=== PATIENT | female | born 1940 | race Caucasian/White ===

== ENCOUNTER 2019-06-04 06:16 | Inpatient (IN) | payer OTHER ==
[2019-06-04 07:08] VITALS: BMI 27.3
--- NOTE | 2019-06-04 07:22 | PDOC ---
History of Present Illness - General Chief Complaint: Pain Stated Complaint: ABD PAIN Time Seen by Provider: 06/04/19 07:22 History Source: Patient Exam Limitations: No Limitations - History of Present Illness Initial Comments: 06/04/19 07:40 CHIEF COMPLAINT: Abdominal pain HISTORY OF PRESENT ILLNESS: This is a 78-year-old female with a history of hypercholesterolemia, uterine carcinoma S/P hysterectomy (no adjuvant therapy), and cholecystectomy who presents with her for evaluation of abdominal pain. The patient reports that she has had loss of appetite, intermittent achy abdominal pain, and constipation for the last 3 weeks. She has been very little and her last bowel movement was more than a week ago. She notes that her abdomen is distended. She has some nausea. She denies fevers/chills, night sweats, weight loss, rectal bleeding, or any other symptoms. The patient was evaluated by her PCP for abdominal pain and prescribed antacids , which she took for 1 week. She states that this helped initially, but pain has been persistent. Vital signs on arrival are notable for pulse of 107. Smoking: Quit 15 years ago Alcohol: Occasional PCP: Dr. Bustamante Surgical history: Hysterectomy in 1998, cholecystectomy 2004 Colonoscopy only once in 1998, which was normal per her report REVIEW OF SYSTEMS: GENERAL/CONSTITUTIONAL: No fever or chills. Generalized weakness. No weight change. HEAD, EYES, EARS, NOSE AND THROAT: No change in vision. No ear pain or discharge. No sore throat. CARDIOVASCULAR: No chest pain or palpitations. RESPIRATORY: No cough, wheezing, or shortness of breath. GASTROINTESTINAL: See HPI. GENITOURINARY: No dysuria, frequency, or change in urination. MUSCULOSKELETAL: No joint or muscle swelling or pain. No neck or back pain. SKIN: No rash or easy bruising. NEUROLOGIC: No headache, vertigo, loss of consciousness, or loss of sensation. PSYCHIATRIC: No depression or anxiety. ENDOCRINE: No increased thirst. No abnormal weight change. HEMATOLOGIC/LYMPHATIC: No anemia, easy bleeding, or history of blood clots. ALLERGIC/IMMUNOLOGIC: No hives or skin allergy. No latex allergy. PHYSICAL EXAM: GENERAL: The patient is awake, alert, and fully oriented, in some distress secondary to pain. HEAD: Normal with no signs of trauma. ENT: Pupils equal, round and reactive to light, extraocular movements intact, sclera anicteric, conjunctiva clear. Neck supple. LUNGS: Clear to auscultation bilaterally. Normal excursion. No respiratory distress or use of accessory muscles. CV: RRR, S1/S2, no MRG. Cap refill < 2 sec. ABDOMEN: Firm, distended, dull to percussion. Bowel sounds present but hypoactive. No focal tenderness.. EXTREMITIES: Normal range of motion, no edema. NEUROLOGICAL: Normal speech, normal gait. CN II-XII grossly intact. PSYCH: Normal mood, normal affect. SKIN: Warm, dry, normal turgor, no rashes or lesions noted. 06/04/19 07:57 Past History - Past Medical History Allergies/Adverse Reactions: Allergies Allergy/AdvReac Type Severity Reaction Status Date / Time No Known Allergies Allergy Verified 06/04/19 07:13 Home Medications: Ambulatory Orders Aspirin [Adult Aspirin Regimen] 81 mg PO DAILY 06/04/19 Pantoprazole Sodium 40 mg PO DAILY 06/04/19 Simvastatin 20 mg PO DAILY 06/04/19 - Suicide/Smoking/Psychosocial Hx Smoking History: Unknown if ever smoked *Physical Exam - Vital Signs Last Vital Signs Temp Pulse Resp BP Pulse Ox 97.5 F L 107 H 18 136/80 100 06/04/19 07:02 06/04/19 07:02 06/04/19 07:02 06/04/19 07:02 06/04/19 07:02 ED Treatment Course - LABORATORY CBC & Chemistry Diagram: 06/04/19 08:14 06/04/19 08:14 Medical Decision Making - Medical Decision Making 06/04/19 07:45 A/P: 78-year-old female with 3 weeks of abdominal pain, distention, loss of appetite, and constipation. 1. EKG 2. Labs including CBC, CMP, lipase, lactic acid, UA/culture 3. CTAP with PO/IV contrast to evaluate for SBO, malignant process, other intra- abdominal pathology 4. Zofran 4mg IVP for pain 5. IV hydration 6. Patient declines analgesia at this time 06/04/19 13:00 Labs notable for hyponatremia-127, elevated alkaline phosphatase, elevated lactic acid (3.0). CT reviewed with radiologist: There is a right pleural effusion. There are multiple splenic lesions. There is a large volume of ascites. There are bone lesion suspicious for metastases. This likely represents a metastatic malignant process, with unknown primary at this time. Discussed with Dr. Bustamante, will admit to hospitalist for further evaluation and treatment including paracentesis. Discussed with IR - will perform paracentesis including cytology today. 06/04/19 14:05 *DC/Admit/Observation/Transfer Diagnosis at time of Disposition: Ascites, Abdominal pain, Constipation - Discharge Dispostion Condition at time of disposition: Guarded Decision to Admit order: Yes - Referrals Referrals: Dougie Bustamante MD [Primary Care Provider] - - Patient Instructions - Post Discharge Activity
[2019-06-04] MEDS ORDERED: ONDANSETRON 4 MG/2 ML VIAL ONE (07:49)
[2019-06-04] MEDS ORDERED: SODIUM CHLORIDE 1,000 ML IV SCH (08:00)
[2019-06-04] MEDS: ONDANSETRON 4 MG/2 ML VIAL IVPUSH PRN (08:15)
[2019-06-04 08:30] LABS: BASO % 0.7 % (0-2.0); EOS % 0.4 % (0-4.5); HEMATOCRIT 39.1 % (32.4-45.2); HEMOGLOBIN 13.5 GM/dL (10.7-15.3); LYMPH % 5.7 % (8-40); MCH 31.1 pg (25.7-33.7); MCHC 34.5 g/dl (32.0-36.0); MEAN CELL VOLUME 90.3 fl (80-96); MEAN PLT VOLUME 9.1 fl (7.5-11.1); MONO % 11.1 % (3.8-10.2); NEUT % 82.1 % (42.8-82.8); PLATELET COUNT 545 K/MM3 (134-434); RBC 4.34 M/mm3 (3.60-5.2); RDW 15.3 % (11.6-15.6); WHITE BLOOD COUNT 7.3 K/mm3 (4.0-10.0)
[2019-06-04 08:49] LABS: ALBUMIN 3.6 g/dl (3.4-5.0); BLOOD UREA NITROGEN 33.1 mg/dL (7-18); CALCIUM 8.5 mg/dL (8.5-10.1); CREATININE 1.1 mg/dL (0.55-1.3); POTASSIUM 4.9 mmol/L (3.5-5.1); TOT PROT 7.5 g/dl (6.4-8.2)
[2019-06-04 08:58] LABS: HYALINE CASTS 28 /lpf (0-8); URINE APPEARANCE CLOUDY; URINE BACTERIA 56.7 /hpf (NEGATIVE); URINE BILIRUBIN 2+ (NEGATIVE); URINE COLOR DK YELLOW; URINE GLUCOSE (UA) NEGATIVE (NEGATIVE); URINE KETONE TRACE (NEGATIVE); URINE LEUK ESTERASE 2+ (NEGATIVE); URINE NITRITE POSITIVE (NEGATIVE); URINE PROTEIN TRACE (NEGATIVE); URINE WBC 8 /hpf (0-5)
[2019-06-04 09:28] LABS: INR 1.05 (0.83-1.09); PROTHROMBIN TIME (PATIENT) 12.4 SEC (9.7-13.0)
[2019-06-04 12:34] LABS: URINE RBC 0-3 /hpf (0-4)
--- NOTE | 2019-06-04 15:59 | HP ---
CHIEF COMPLAINT: Abdominal pain PCP: Dr. Bustamante HISTORY OF PRESENT ILLNESS: 78 y/o F w PMHx of HLD, Uterine Ca s/p hysterectomy (No chemoradiation) presents with abdominal pain, Loss of appetite. Patient says she began to feel GERD sx's approx. 3 weeks ago. After about 1 week of persistent sx's, she spoke with Dr. Bustamante who rx'ed Pantoprazole. Around this time, she additionally began to feel 8/10 cramping dull diffuse abdominal pain, worse over the left side without radiation, that waxes and wanes. The PPI use improved her GERD sx's however her abdominal pain persisted. This was accompanied by Decreased PO Intake, weakness, lightheadedness for which she again discussed the case with her PCP yesterday who recommend outpatient Labs and CT A/P with PO and IV Contrast. Overnight, her pain persisted but her weakness worsened prompting her to visit [facility] [place]. Additionally complains of chills, constipation. Denies any associated fevers, chest pain, SOB, nausea, vomiting, diarrhea, dysuria, hematuria. 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 Ambulation: Cane Residence: Home with Allergies No Known Allergies Allergy (Verified 06/04/19 07:13) HOME MEDICATIONS: Home Medications Medication Instructions Recorded Aspirin [Adult Aspirin Regimen] 81 mg PO DAILY 06/04/19 Pantoprazole Sodium 40 mg PO DAILY 06/04/19 Simvastatin 20 mg PO DAILY 06/04/19 REVIEW OF SYSTEMS As per HPI PHYSICAL EXAMINATION Vital Signs - 24 hr 06/04/19 06/04/19 07:02 11:07 Temperature 97.5 F L 97.1 F L Pulse Rate 107 H Pulse Rate [ 86 Right] Respiratory 18 Rate Blood Pressure 136/80 Blood Pressure 127/98 [Left] O2 Sat by Pulse 100 96 Oximetry (%) GENERAL: A&Ox3, NAD HEAD: NCAT EYES: PERRL, EOMI EARS, NOSE, THROAT: Moist mucous membranes. NECK: No JVD LUNGS: CTAB, No wheezes, no crackles HEART: Regular rate and rhythm, normal S1 and S2 without murmur ABDOMEN: Soft, tender to palpation over the LUQ and LLQ, Mildly distended, Hypooactive bowel sounds, no guarding, no rebound EXTREMITIES: 2+ pulses, No peripheral edema. NEUROLOGICAL: Cranial nerves II-XII intact. Normal speech. Gross sensation intact throughout. 5/5 muscle strength throughout SKIN: Warm, dry Laboratory Last Values WBC 7.3 K/mm3 (4.0-10.0) 06/04/19 08:14 RBC 4.34 M/mm3 (3.60-5.2) 06/04/19 08:14 Hgb 13.5 GM/dL (10.7-15.3) 06/04/19 08:14 Hct 39.1 % (32.4-45.2) 06/04/19 08:14 MCV 90.3 fl (80-96) 06/04/19 08:14 MCH 31.1 pg (25.7-33.7) 06/04/19 08:14 MCHC 34.5 g/dl (32.0-36.0) 06/04/19 08:14 RDW 15.3 % (11.6-15.6) 06/04/19 08:14 Plt Count 545 K/MM3 (134-434) H 06/04/19 08:14 MPV 9.1 fl (7.5-11.1) 06/04/19 08:14 Absolute Neuts (auto) 6.0 K/mm3 (1.5-8.0) 06/04/19 08:14 Neutrophils % 82.1 % (42.8-82.8) 06/04/19 08:14 Lymphocytes % 5.7 % (8-40) L 06/04/19 08:14 Monocytes % 11.1 % (3.8-10.2) H 06/04/19 08:14 Eosinophils % 0.4 % (0-4.5) 06/04/19 08:14 Basophils % 0.7 % (0-2.0) 06/04/19 08:14 Nucleated RBC % 0 % (0-0) 06/04/19 08:14 PT with INR 12.40 SEC (9.7-13.0) 06/04/19 08:14 INR 1.05 (0.83-1.09) 06/04/19 08:14 Sodium 127 mmol/L (136-145) L 06/04/19 08:14 Potassium 4.9 mmol/L (3.5-5.1) 06/04/19 08:14 Chloride 91 mmol/L (98-107) L 06/04/19 08:14 Carbon Dioxide 23 mmol/L (21-32) 06/04/19 08:14 Anion Gap 13 MMOL/L (8-16) 06/04/19 08:14 BUN 33.1 mg/dL (7-18) H 06/04/19 08:14 Creatinine 1.1 mg/dL (0.55-1.3) 06/04/19 08:14 Est GFR (CKD-EPI)AfAm 55.69 06/04/19 08:14 Est GFR (CKD-EPI)NonAf 48.05 06/04/19 08:14 Random Glucose 117 mg/dL (74-106) H 06/04/19 08:14 Lactic Acid 1.4 mmol/L (0.4-2.0) 06/04/19 10:34 Calcium 8.5 mg/dL (8.5-10.1) 06/04/19 08:14 Total Bilirubin 2.0 mg/dL (0.2-1) H 06/04/19 08:14 AST 32 U/L (15-37) 06/04/19 08:14 ALT 18 U/L (13-61) 06/04/19 08:14 Alkaline Phosphatase 250 U/L (45-117) H 06/04/19 08:14 Total Protein 7.5 g/dl (6.4-8.2) 06/04/19 08:14 Albumin 3.6 g/dl (3.4-5.0) 06/04/19 08:14 Lipase 202 U/L (73-393) 06/04/19 07:35 Urine Color Dk yellow 06/04/19 08:14 Urine Appearance Cloudy 06/04/19 08:14 Urine pH 5.0 (5.0-8.0) 06/04/19 08:14 Ur Specific Andreas 1.025 (1.010-1.035) 06/04/19 08:14 Urine Protein Trace (NEGATIVE) 06/04/19 08:14 Urine Glucose (UA) Negative (NEGATIVE) 06/04/19 08:14 Urine Ketones Trace (NEGATIVE) H 06/04/19 08:14 Urine Blood Negative (NEGATIVE) 06/04/19 08:14 Urine Nitrite Positive (NEGATIVE) H 06/04/19 08:14 Urine Bilirubin 2+ (NEGATIVE) H 06/04/19 08:14 Urine Urobilinogen 2.0 mg/dL (0.2-1.0) H 06/04/19 08:14 Ur Leukocyte Esterase 2+ (NEGATIVE) H 06/04/19 08:14 Urine WBC (Auto) 8 /hpf (0-5) 06/04/19 08:14 Urine RBC (Auto) 0-3 /hpf (0-4) 06/04/19 08:14 Urine Casts (Auto) 28 /lpf (0-8) 06/04/19 08:14 U Pathogenic Cast Auto None seen /lpf (NEGATIVE) 06/04/19 08:14 U Epithel Cells (Auto) 10.0 /HPF (0-5/HPF) 06/04/19 08:14 Urine Bacteria (Auto) 56.7 /hpf (NEGATIVE) 06/04/19 08:14 Blood Type A NEGATIVE 06/04/19 08:14 Antibody Screen Negative 06/04/19 08:14 Active Medications Docusate Sodium (Colace -) 100 mg PO TID [facility] Enoxaparin Sodium (Lovenox -) 40 mg SQ DAILY [facility] Sodium Chloride (Normal Saline -) 1,000 mls @ 100 mls/hr IV ASDIR LUISA Last Admin: 06/04/19 08:15 Dose: 100 mls/hr Sodium Chloride (Normal Saline -) 1,000 mls @ 83 mls/hr IV ASDIR [facility] Ondansetron HCl (Zofran Injection) 4 mg IVPUSH Q4H PRN PRN Reason: NAUSEA AND/OR VOMITING Last Admin: 06/04/19 08:15 Dose: 4 mg Oxycodone HCl (Roxicodone -) 5 mg PO Q4H PRN PRN Reason: PAIN LEVEL 6-10 Senna (Senna -) 2 tab PO HS [facility] IMAGING: -CXR: Bibasilar pulmonary and pleural changes right greater than left. Residual contrast in bowel. Correlation recommended. Follow-up suggested. -CT A/P with contrast: [id number] right pleural effusion with compressive atelectasis of the right lower lobe, posteriorly. Mild atelectatic changes with a pleural-based nodule in the included left lower lobe measuring 1.2cm that demonstrates a spiculated margin suspicious for malignancy, primary versus secondary. Multiple low-attenuation foci in the spleen suspicious for metastasis. Large amount of ascites in the abdomen and pelvis. Mild dilatation of the small bowel loops with wall thickening that may be due to the presence of significant surrounding ascites. There is also significant mesenteric stranding in the left upper abdomen adjacent to the splenic flexure, of uncertain etiology. There is no gross thickening of the splenic flexure wall. Diverticulosis coli mainly in the sigmoid colon without evidence of acute diverticulitis. Diffuse bone metastasis, as described above. ASSESSMENT/PLAN: 78 y/o F w PMHx of HLD, Uterine Ca s/p hysterectomy (No chemoradiation) presents with abdominal pain, Loss of appetite. #Ascities -Likely due to metastatic disease with unknown primary lesion -Oncology (Dr. Johansen) consulted by ED -Paracentesis done, 3860mL Removed, follow Cytology, Gram stain, cx, cell count , albumin -Analgesia via Oxycodone 5mg -Chest CT to further evaluate LLL pleural-based nodule suspicious for malignancy #Hyponatremia -Likely due to Poor PO Intake, Still consider SIADH -Continue IV Hydration -Repeat BMP @ 1800 -Check Urine and Serum Osm, Urine Na, Urine Cr #Lactic Acidosis, Resolved -In the setting of Tumor vs Dehydration #RLL Compressive atelectasis -Without cough or fever -Incentive spirometry #Weakness + Decreased PO Intake -In the setting of the above malignancy -Dietary consulted -Ensure Nutritional supplementation #Constipation -Bowel Regimen #FEN -IV NS @ 100 -Replete Lytes PRN -Soft diet #PPx -DVT: Enoxaparin Dispo: Admit to Med-Surg Family Medical History Family Hx Cancer: Mother (Breast Ca, ?Colon Ca) Visit type - Emergency Visit Emergency Visit: Yes ED Registration Date: 06/04/19 Care time: The patient presented to the Emergency Department on the above date and was hospitalized for further evaluation of their emergent condition. - New Patient This patient is new to me today: Yes Date on this admission: 06/05/19 - Critical Care Critical Care patient: No ATTENDING PHYSICIAN STATEMENT I saw and evaluated the patient. I reviewed the resident's note and discussed the case with the resident. I agree with the resident's findings and plan as documented. SUBJECTIVE: OBJECTIVE: ASSESSMENT AND PLAN:
[2019-06-04] MEDS ORDERED: DOCUSATE SODIUM 100 MG CAPSULE (FP) PO ONE (16:20)
[2019-06-04] MEDS: SODIUM CHLORIDE 1,000 ML IV SCH (16:35)
[2019-06-04] MEDS: DOCUSATE SODIUM 100 MG CAPSULE (FP) PO SCH ×2 (16:35→22:25)
--- NOTE | 2019-06-04 18:14 | PN ---
Teaching Attending Note Name of Resident: Mary Koch ATTENDING PHYSICIAN STATEMENT I saw and evaluated the patient. I reviewed the resident's note and discussed the case with the resident. I agree with the resident's findings and plan as documented. SUBJECTIVE: CC: abd pain. HPI : Pleasant unfortunate 78 y/o lady with h/o HTN and depression, and uterine cancer s/p hysterectomy who presented with abd pain x 3 weeks. pain started in epigastric area,lasted a week then continued even after her PCp gave her PPIx 1 week. she reports abd size is getting bigger slowly, has poor po intake. last colo and EGD in 1997, ( reportedly nl). quit smoking 15 years ago, but previously smoked heavily. had serial PETS and CTS after her Hysterectomy for years, then stopped. OBJECTIVE: NAD , pale, thin. HEENT: No LAP in neck. has no facial droop. dry MM. tongue at midline. CV: RRR, no MRG Lungs: CATB Ext : no demea or erythema. Abd: soft, NT, distended, + shifting dullness, no hepatomegaly or splenomegaly detected Neuro: No facial droop, EOMi, round equal pupils, reactive to light , strength 5 /5 in upper and lower extremities proximally and distally. sensation to light touch nl. ASSESSMENT AND PLAN: Pleasant unfortunate 78 y/o lady with h/o HTN and depression, and uterine cancer s/p hysterectomy who presented with abd pain x 3 weeks,. She was found to have ascitis and splen, and bone lesions 1- Possible metastatic cancer: possible primary could be lung, colon, or other... - obtain chest CT - follow cytology from Ascitis fluid - Onc consulted 2- Ascitis: likely malignant . - s/p IR drainage of 3860 cc - follow cytology, cell count, cx , albumin 3- hyponatremia: likely hypovolemic hypotonic hyponatremia ( clinical volume depletion, poor pointake, elevated BUN/Cr) can't r/o SIADH due to cancer - check Serum and urine osm - Urine cr, NA, and Osm - cont IVF with NS and repeat Na . 4- Fatigue, due to volume depletion, and cancer - dietitian consult - ensure 5- Constipation : start a bowel regimen dispo: HLOC d/w patient and her daughter at bedside
--- NOTE | 2019-06-04 20:28 | CONSULT ---
Consult - text type - Consultation Consultation Note: This is a 78-year-old female with a history of hypercholesterolemia, uterine carcinoma S/P hysterectomy (no adjuvant therapy), and cholecystectomy who presents with abdominal pain/disctention of several weeks duration. The patient reports that she has had loss of appetite, intermittent abdominal pain, and constipation for the last 3 weeks. She had intermittent vomiting. She denies fevers/chills, night sweats, weight loss, rectal bleeding, or any other symptoms. Smoking: Quit 15 years ago Alcohol: Occasional PCP: Dr. Bustamante Surgical history: Hysterectomy in 1998, cholecystectomy 2004 Colonoscopy only once in 1998, which was normal per her report AFVSS Cor: RSR, No murmurs, No gallops Lungs: Clear to P&A Abd: Soft, Normal bowel sounds, No organomegaly Ext:No significant edema labs/meds reviewed Allergies/Adverse Reactions: Allergies Allergy/AdvReac Type Severity Reaction Status Date / Time No Known Allergies Allergy Verified 06/04/19 07:13 Home Medications: Ambulatory Orders Aspirin [Adult Aspirin Regimen] 81 mg PO DAILY 06/04/19 Pantoprazole Sodium 40 mg PO DAILY 06/04/19 Simvastatin 20 mg PO DAILY 06/04/19 A/P 78 y/o patient presenting with h/o hysterectomy, comes in with abdominal distention CT scan revealed -- a right pleural effusion. There are multiple splenic lesions. There is a large volume of ascites. There are bone lesions suspicious for metastases s/p paracentesis -- await cytology check tumor markers -- CA 125/ CEA check bone scan colonoscopy several yrs. ago> 10yrs. mammogram-- benign, U/S --hypoechoic masses, stable 11/03 will follow
[2019-06-04] MEDS ORDERED: SENNOSIDES 8.6MG TABLET (FP) PO SCH (22:00)
[2019-06-04 23:18] LABS: BLOOD UREA NITROGEN 31.3 mg/dL (7-18); CALCIUM 7.6 mg/dL (8.5-10.1); POTASSIUM 4.6 mmol/L (3.5-5.1)
[2019-06-04] MEDS ORDERED: FAMOTIDINE 20 MG/50 ML IVPB 20 MG/50 ML MG IVPB ONE (23:28)
[2019-06-05] MEDS: ONDANSETRON 4 MG/2 ML VIAL IVPUSH PRN (00:33)
[2019-06-05] MEDS: DOCUSATE SODIUM 100 MG CAPSULE (FP) PO SCH (05:42)
[2019-06-05 07:35] LABS: BASO % 0.5 % (0-2.0); EOS % 0.7 % (0-4.5); HEMATOCRIT 33.2 % (32.4-45.2); HEMOGLOBIN 11.2 GM/dL (10.7-15.3); LYMPH % 6.8 % (8-40); MCH 30.7 pg (25.7-33.7); MCHC 33.8 g/dl (32.0-36.0); MEAN CELL VOLUME 90.8 fl (80-96); MEAN PLT VOLUME 8.9 fl (7.5-11.1); MONO % 12.7 % (3.8-10.2); NEUT % 79.3 % (42.8-82.8); PLATELET COUNT 405 K/MM3 (134-434); RBC 3.65 M/mm3 (3.60-5.2); RDW 15.1 % (11.6-15.6); WHITE BLOOD COUNT 6.9 K/mm3 (4.0-10.0)
[2019-06-05 08:02] LABS: BLOOD UREA NITROGEN 27.4 mg/dL (7-18); CALCIUM 7.8 mg/dL (8.5-10.1); CREATININE 0.9 mg/dL (0.55-1.3); MAGNESIUM 2.7 mg/dL (1.8-2.4); PHOSPHOROUS 4.6 mg/dL (2.5-4.9)
[2019-06-05] MEDS: SODIUM CHLORIDE 1,000 ML IV SCH ×2 (08:04→21:11)
[2019-06-05 08:10] LABS: ALBUMIN 2.6 g/dl (3.4-5.0); BILIRUBIN,DIRECT 0.6 mg/dL (0.0-0.2); BILIRUBIN,TOTAL 1.3 mg/dL (0.2-1); TOT PROT 5.4 g/dl (6.4-8.2)
[2019-06-05] MEDS: ENOXAPARIN NA (PORCINE) 40 MG/0.4 ML DISP.SYRIN SQ SCH (09:21)
--- NOTE | 2019-06-05 10:59 | PN ---
Physical Exam: SUBJECTIVE: Patient seen and examined. Pt denied any abdmominal pain, weakness. pt says she feels great and that her appetite is back OBJECTIVE: Vital Signs Period Temp Pulse Resp BP Sys/Lopez Pulse Ox Last 24 Hr 97.1 F-97.8 F 81-91 18-18 107-128/52-98 95-96 GENERAL: The patient is awake, alert, and fully oriented, in no acute distress. HEAD: Normal with no signs of trauma. ENT: clear without exudates, dry mucous membranes. LUNGS: Breath sounds equal, clear to auscultation bilaterally, no wheezes, no crackles, no accessory muscle use. HEART: Regular rate and rhythm, S1, S2 without murmur, rub or gallop. ABDOMEN: soft but difficult to palpate, nontender, nondistended, normoactive bowel sounds, no guarding, no rebound, no hepatosplenomegaly, indurations specially in the middle. EXTREMITIES: 2+ pulses, warm, well-perfused, no edema. PSYCH: Normal mood, normal affect. SKIN: Warm, dry, normal turgor, no rashes or lesions noted Laboratory Results - last 24 hr 06/04/19 06/04/19 06/04/19 08:14 10:34 22:00 WBC RBC Hgb Hct MCV MCH MCHC RDW Plt Count MPV Absolute Neuts (auto) Neutrophils % Lymphocytes % Monocytes % Eosinophils % Basophils % Nucleated RBC % Sodium Potassium Chloride Carbon Dioxide Anion Gap BUN Creatinine Est GFR (CKD-EPI)AfAm Est GFR (CKD-EPI)NonAf Random Glucose Serum Osmolality Lactic Acid 1.4 Calcium Phosphorus Magnesium Total Bilirubin Direct Bilirubin GGT AST ALT Alkaline Phosphatase Total Protein Albumin Urine RBC (Auto) 0-3 U Pathogenic Cast Auto None seen Urine Osmolality Ur Random Creatinine 167.0 H Ur Random Sodium 06/04/19 06/04/19 06/04/19 22:00 22:00 22:40 WBC RBC Hgb Hct MCV MCH MCHC RDW Plt Count MPV Absolute Neuts (auto) Neutrophils % Lymphocytes % Monocytes % Eosinophils % Basophils % Nucleated RBC % Sodium 130 L Potassium 4.6 Chloride 96 L Carbon Dioxide 23 Anion Gap 11 BUN 31.3 H Creatinine 1.0 Est GFR (CKD-EPI)AfAm 62.49 Est GFR (CKD-EPI)NonAf 53.92 Random Glucose 87 Serum Osmolality Lactic Acid Calcium 7.6 L Phosphorus Magnesium Total Bilirubin Direct Bilirubin GGT AST ALT Alkaline Phosphatase Total Protein Albumin Urine RBC (Auto) U Pathogenic Cast Auto Urine Osmolality 691 Ur Random Creatinine Ur Random Sodium 8 L 06/05/19 06/05/19 06/05/19 06:30 06:30 06:30 WBC 6.9 RBC 3.65 Hgb 11.2 Hct 33.2 D MCV 90.8 MCH 30.7 MCHC 33.8 RDW 15.1 Plt Count 405 D MPV 8.9 Absolute Neuts (auto) 5.5 Neutrophils % 79.3 Lymphocytes % 6.8 L Monocytes % 12.7 H Eosinophils % 0.7 Basophils % 0.5 Nucleated RBC % 0 Sodium 131 L Potassium 5.0 Chloride 99 Carbon Dioxide 24 Anion Gap 9 BUN 27.4 H Creatinine 0.9 Est GFR (CKD-EPI)AfAm 70.98 Est GFR (CKD-EPI)NonAf 61.24 Random Glucose 85 Serum Osmolality 281 Lactic Acid Calcium 7.8 L Phosphorus 4.6 Magnesium 2.7 H Total Bilirubin 1.3 H Direct Bilirubin 0.6 H GGT 51 AST 30 ALT 16 Alkaline Phosphatase 185 H Total Protein 5.4 L Albumin 2.6 L Urine RBC (Auto) U Pathogenic Cast Auto Urine Osmolality Ur Random Creatinine Ur Random Sodium Active Medications Generic Name Dose Route Start Last Admin Trade Name Freq PRN Reason Stop Dose Admin Docusate Sodium 100 mg 06/04/19 15:45 06/05/19 05:42 Colace - PO 100 mg TID LUISA Administration Enoxaparin Sodium 40 mg 06/05/19 10:00 06/05/19 09:21 Lovenox - SQ 40 mg DAILY LUISA Administration Sodium Chloride 1,000 mls @ 83 mls/hr 06/04/19 15:45 06/05/19 08:04 Normal Saline - IV 83 mls/hr ASDIR LUISA Administration Ondansetron HCl 4 mg 06/04/19 07:35 06/05/19 00:33 Zofran Injection IVPUSH 4 mg Q4H PRN Administration NAUSEA AND/OR VOMITING Oxycodone HCl 5 mg 06/04/19 15:46 Roxicodone - PO Q4H PRN PAIN LEVEL 6-10 Senna 2 tab 06/04/19 22:00 06/04/19 22:25 Senna - PO 2 tab HS LUISA Administration ASSESSMENT/PLAN: 78 y/o F w PMHx of HLD, Uterine Ca s/p hysterectomy (No chemoradiation) presents with abdominal pain, Loss of appetite. Ascites Likely due to metastatic disease with unknown primary lesion Oncology (Dr. Johansen) on board Paracentesis done,follow up Cytology, Gram stain, cx, cell count, albumin Chest CT small to moderate pleural effusion with atelectasis, trace left pleural effusion. 1.2 cm, 0.5 cm, poss 0.3 cm pleural nodules echo ordered for malignant effusion eval Hyponatremia SIADH or poor PO intake IV Hydration NS@83 Repeat BMP sodium increased to 131 k 5.0 Check Urine osm 691 and Serum Osm 276 , Urine Na 8, Urine Cr 167 RLL Compressive atelectasis Incentive spirometry Weakness + Decreased PO Intake In the setting of the above malignancy Dietary consulted Ensure Nutritional supplementation Constipation Possibly due to ascites since now resolved Bowel Regimen PRN daily DVT PPx Enoxaparin Visit type - Emergency Visit Emergency Visit: Yes ED Registration Date: 06/04/19 Care time: The patient presented to the Emergency Department on the above date and was hospitalized for further evaluation of their emergent condition. - New Patient This patient is new to me today: Yes Date on this admission: 06/05/19 - Critical Care Critical Care patient: No - Discharge Referral Referred to [facility] Med P.C.: No ATTENDING PHYSICIAN STATEMENT I saw and evaluated the patient. I reviewed the resident's note and discussed the case with the resident. I agree with the resident's findings and plan as documented. SUBJECTIVE: OBJECTIVE: ASSESSMENT AND PLAN:
[2019-06-05] MEDS ORDERED: SENNOSIDES 8.6MG TABLET (FP) PO PRN (11:00)
--- NOTE | 2019-06-05 12:00 | PN ---
Teaching Attending Note Name of Resident: Nelly Block ATTENDING PHYSICIAN STATEMENT I saw and evaluated the patient. I reviewed the resident's note and discussed the case with the resident. I agree with the resident's findings and plan as documented. SUBJECTIVE: No fever or chills. NO PATEL , had a big BM today. No abd pain. no N?V, no SOB or CP OBJECTIVE: NAD , pale. HEENT: No LAP in neck. has no facial droop. CV: RRR, no MRG Lungs: CATB Ext : no edema or erythema on LE Abd: soft, NT, distended, + shifting dullness, no hepatomegaly or splenomegaly detected ASSESSMENT AND PLAN: Pleasant unfortunate 78 y/o lady with h/o HTN and depression, and uterine cancer s/p hysterectomy who presented with abd pain x 3 weeks,. She was found to have ascitis and spleen, and bone lesions 1- Possible metastatic cancer: unknown origin - CT of chest with small nodule and b/l pleural effusions - follow cytology from Ascitis fluid - Onc consulted pending - send CEA 2- Ascitis: likely malignant . - s/p IR drainage of 3860 cc - follow cytology. - will call the lab for cell count, cx , albumin - will get echo in light of pleural effusions and ascitis . still need to r/o malignant effusion 3- hyponatremia: FeNA and clinical presentation indicates volume depletion ( cause for hyponatremia). NA level responded to IVF. U Na is low . despite elevated urine Osm, I doubt SAIDH . - cont IVF . monitor Na level 4- Fatigue, due to volume depletion, and possible cancer - dietitian consult - ensure 5- Constipation :cont Bowel regimen as needed Dispo: HLOC
--- NOTE | 2019-06-05 23:53 | EKG ---
Test Reason : Blood Pressure : / mmHG Vent. Rate : 088 BPM Atrial Rate : 088 BPM P-R Int : 134 ms QRS Dur : 072 ms QT Int : 368 ms P-R-T Axes : 026 007 067 degrees QTc Int : 445 ms NORMAL SINUS RHYTHM NORMAL ECG WHEN COMPARED WITH ECG OF 21-MAR-2004 12:16, NONSPECIFIC T WAVE ABNORMALITY NOW EVIDENT IN LATERAL LEADS Confirmed by LETTY SILVEIRA MD ([id number]) on 06/05/2019 11:53:10 PM Referred By: Confirmed By:LETTY SILVEIRA MD
[2019-06-06 08:05] LABS: BASO % 0.9 % (0-2.0); EOS % 2.2 % (0-4.5); HEMOGLOBIN 10.2 GM/dL (10.7-15.3); LYMPH % 6.5 % (8-40); MCH 30.9 pg (25.7-33.7); MEAN CELL VOLUME 90.8 fl (80-96); MEAN PLT VOLUME 8.6 fl (7.5-11.1); MONO % 12.8 % (3.8-10.2); NEUT % 77.6 % (42.8-82.8); PLATELET COUNT 299 K/MM3 (134-434); RDW 14.9 % (11.6-15.6); WHITE BLOOD COUNT 5.5 K/mm3 (4.0-10.0)
[2019-06-06 08:32] LABS: CALCIUM 7.7 mg/dL (8.5-10.1); CREATININE 0.8 mg/dL (0.55-1.3); POTASSIUM 4.8 mmol/L (3.5-5.1)
[2019-06-06] MEDS: oxyCODONE HCL 5 MG TABLET PO PRN ×2 (09:46→13:46)
[2019-06-06] MEDS: SODIUM CHLORIDE 1,000 ML IV SCH ×2 (09:54→22:16)
[2019-06-06] MEDS: ENOXAPARIN NA (PORCINE) 40 MG/0.4 ML DISP.SYRIN SQ SCH (09:54)
[2019-06-06] MEDS: DOCUSATE SODIUM 100 MG CAPSULE (FP) PO PRN (13:40)
--- NOTE | 2019-06-06 15:06 | PN ---
Progress Note (short form) - Note Progress Note: Subjective: no fever or chills. No PATEL , reports SOB with ambulation Objective: Vital Signs: Last Vital Signs Temp Pulse Resp BP Pulse Ox 98.6 F 68 18 104/57 L 95 06/06/19 13:00 06/06/19 13:00 06/06/19 13:00 06/06/19 13:00 06/05/19 21:00 Laboratory Results - last 24 hr 06/06/19 06/06/19 07:15 07:15 WBC 5.5 RBC 3.30 L Hgb 10.2 L Hct 30.0 L MCV 90.8 MCH 30.9 MCHC 34.0 RDW 14.9 Plt Count 299 D MPV 8.6 Absolute Neuts (auto) 4.2 Neutrophils % 77.6 Lymphocytes % 6.5 L Monocytes % 12.8 H Eosinophils % 2.2 D Basophils % 0.9 Nucleated RBC % 0 Sodium 135 L Potassium 4.8 Chloride 102 Carbon Dioxide 26 Anion Gap 7 L BUN 25.0 H Creatinine 0.8 Est GFR (CKD-EPI)AfAm 81.84 Est GFR (CKD-EPI)NonAf 70.61 Random Glucose 90 Calcium 7.7 L LD Total 342 H Physical Exam: NAD, pale. HEENT: No LAP in neck. has no facial droop. CV: RRR, no MRG Lungs: CATB Ext : no edema or erythema on LE Abd: soft, NT, distended, + shifting dullness, no hepatomegaly or splenomegaly ASSESSMENT AND PLAN: Pleasant unfortunate 78 y/o lady with h/o HTN and depression, and uterine cancer s/p hysterectomy who presented with abd pain x 3 weeks. She was found to have ascitis and spleen, and bone lesions 1- Possible metastatic cancer: unknown origin - CT of chest with small nodule and b/l pleural effusions - follow cytology from Ascitis fluid. will have to call pathology tomorrow to see if specimen was received - Onc consulted pending - CA125- CEA pending - will ask pulm to evaluate fro pleurocentesis of R side as she reprots LEWIS 2- Ascitis: likely malignant . - s/p IR drainage of 3860 cc - Spoke to chemistry lab to learn that specimen was never received - will get echo in light of pleural effusions and ascitis . still need to r/o malignant effusion 3- Hyponatremia: likely hypovolemic hyponatremia - cont IVF. monitor Na level 4- Fatigue, due to volume depletion, and possible cancer - dietitian consult - ensure 5- Constipation :cont Bowel regimen as needed Dispo: HLOC d/w patient and Visit type - Emergency Visit Emergency Visit: Yes ED Registration Date: 06/04/19 Care time: The patient presented to the Emergency Department on the above date and was hospitalized for further evaluation of their emergent condition. - New Patient This patient is new to me today: No - Critical Care Critical Care patient: No
[2019-06-07 09:30] LABS: CALCIUM 7.6 mg/dL (8.5-10.1); CREATININE 0.8 mg/dL (0.55-1.3); POTASSIUM 4.3 mmol/L (3.5-5.1)
[2019-06-07] MEDS: ENOXAPARIN NA (PORCINE) 40 MG/0.4 ML DISP.SYRIN SQ SCH (09:34)
[2019-06-07 10:13] LABS: BLOOD UREA NITROGEN 20.8 mg/dL (7-18)
[2019-06-07 10:35] LABS: PERITONEAL RBC 1299 /mm3
--- NOTE | 2019-06-07 12:16 | ECHO ---
Name: VERN CHURCH Exam:Adult Echocardiogram Study Date: 06/07/2019 08:32 AM Age: 78 yrs Reason For Study: pleural effusion Height: 61 in Weight: 145 lb BSA: 1.6 m2 MMode/2D Measurements & Calculations IVSd: 1.1 cm Ao root diam: 2.9 cm LVIDd: 3.9 cm LA dimension: 3.1 cm LVIDs: 2.2 cm LVPWd: 0.99 cm EDV(Teich): 67.6 ml LVOT diam: 2.0 cm ESV(Teich): 16.6 ml LAV (MOD-bp): 45.7 ml Doppler Measurements & Calculations MV E max juan: 68.4 cm/sec Ao V2 max: 190.0 cm/sec MV A max juan: 96.0 cm/sec Ao max P.4 mmHg MV E/A: 0.71 Ao V2 mean: 124.4 cm/sec MV dec time: 0.24 sec Ao mean P.2 mmHg Ao V2 VTI: 36.8 cm MELLISA(I,D): 1.9 cm2 AI P1/2t: 342.7 msec MELLISA(V,D): 1.8 cm2 AI max juan: 169.7 cm/sec LV V1 max P.8 mmHg AI max P.5 mmHg LV V1 mean P.0 mmHg AI dec slope: 145.0 cm/sec2 LV V1 max: 109.1 cm/sec LV V1 mean: 79.3 cm/sec LV V1 VTI: 21.5 cm SV(LVOT): 69.2 ml PA V2 max: 105.9 cm/sec PA max P.5 mmHg Med Peak E' Juan: 6.1 cm/sec PI Vmax: 111.3 cm/sec Med E/e': 11.2 Lat Peak E' Juan: 9.2 cm/sec Lat E/e': 7.4 Procedure A complete two-dimensional transthoracic echocardiogram was performed (2D, M-mode, Doppler and color flow Doppler). Technically limited study. Left Ventricle The left ventricle is normal in size. Left ventricular systolic function is normal. Ejection Fraction = 65- 70%. Grade I diastolic dysfunction, (abnormal relaxation pattern). Ratio E/E'= 11. No regional wall m otion abnormalities noted. Right Ventricle The right ventricle is normal size. The right ventricular systolic function is normal. Atria The left atrial size is normal. Right atrial size is normal. Mitral Valve The mitral valve is normal in structure and function. There is no mitral regurgitation noted. Tricuspid Valve The tricuspid valve is normal in structure and function. No tricuspid regurgitation. Aortic Valve There is mild aortic sclerosis.;. Mild aortic regurgitation. Pulmonic Valve The pulmonic valve is not well visualized. Trace pulmonic valvular regurgitation. Great Vessels The aortic root is normal size. Pericardium/Pleura There is no pericardial effusion. Interpretation Summary Technically limited study The left ventricle is normal in size. Left ventricular systolic function is normal. No regional wall motion abnormalities noted. Ejection Fraction = 65-70%. Grade I diastolic dysfunction, (abnormal relaxation pattern). Ratio E/E'= 11 c/w normal filling pressure The right ventricular systolic function is normal. The left atrial size is normal. Right atrial size is normal. There is mild aortic sclerosis. Mild aortic regurgitation. Trace pulmonic valvular regurgitation. There is no pericardial effusion. Previous study is not available for comparison Pascual Colvin MD 06/07/2019 12:16 PM
--- NOTE | 2019-06-07 13:04 | CON.PULM ---
Consult Consult Specialty:: PULMONARY Referred by:: Dr Walker Reason for Consultation:: pleural effusion - History of Present Illness Chief Complaint: abdominal distention History of Present Illness: 78yo female with h/o hyperlipidemia, uterine ca s/p hysterectomy who was admitted with worsening abdominal distention and generalized weakness x 3 weeks. Found to have significant ascites now s/p paracentesis draining close to 4L with improvement. On imaging, also noted to have splenic, bone lesions, right pleural effusion and a LLL nodule as well. Reports some shortness of breath with exertion but not limiting her activity. No cough or wheezing. No history of asthma or COPD. She is a remote smoker. She reports being up to date in her cancer screening. Her mother did have breast ca. - History Source History Provided By: Patient, Family Member, Medical Record Limitations to Obtaining History: No Limitations - Past Medical History Cardio/Vascular: Yes: Hyperlipdemia - Alcohol/Substance Use Hx Alcohol Use: No - Smoking History Smoking history: Former smoker Have you smoked in the past 12 months: No Home Medications - Allergies Allergies/Adverse Reactions: Allergies Allergy/AdvReac Type Severity Reaction Status Date / Time No Known Allergies Allergy Verified 06/04/19 07:13 - Home Medications Home Medications: Ambulatory Orders Aspirin [Adult Aspirin Regimen] 81 mg PO DAILY 06/04/19 Simvastatin 20 mg PO DAILY 06/04/19 Review of Systems - Review of Systems Constitutional: reports: Weakness. denies: Chills, Fever Eyes: denies: Recent Change in Vision HENT: denies: Nasal Congestion, Throat Pain Neck: denies: Stiffness, Tenderness Cardiovascular: reports: Shortness of Breath. denies: Chest Pain, Edema Respiratory: reports: SOB on Exertion. denies: Cough, Wheezing Gastrointestinal: reports: Abdominal Pain, Bloating. denies: Constipation, Nausea, Vomiting Genitourinary: denies: Dysuria, Hematuria Neurological: denies: Dizziness, Headache Endocrine: denies: Unexplained Weight Loss Physical Exam Vital Sings: Vital Signs Temperature 98.7 F 06/07/19 05:58 Pulse Rate 81 06/07/19 05:58 Respiratory Rate 18 06/07/19 05:58 Blood Pressure 107/54 L 06/07/19 05:58 O2 Sat by Pulse Oximetry (%) 95 06/06/19 09:00 Constitutional: Yes: Calm Eyes: Yes: Conjunctiva Clear, EOM Intact HENT: Yes: Atraumatic, Normocephalic Neck: Yes: Supple, Trachea Midline Cardiovascular: Yes: Regular Rate and Rhythm Respiratory: Yes: Diminished (decreased breath sounds at the bases) ...Clubbing: No Gastrointestinal: Yes: Normal Bowel Sounds, Soft, Distention. No: Tenderness Edema: No Labs: CBC, BMP 06/06/19 07:15 06/07/19 07:10 Imaging - Results Chest X-ray: Report Reviewed, Image Reviewed Cat Scan: Report Reviewed, Image Reviewed (right pleural effusion, LLL nodule) Problem List - Problems (1) Ascites Code(s): R18.8 - OTHER ASCITES (2) Pleural effusion Code(s): J90 - PLEURAL EFFUSION, NOT ELSEWHERE CLASSIFIED (3) Lung nodule Code(s): R91.1 - SOLITARY PULMONARY NODULE Assessment/Plan Suspected Metastatic Disease Ascites s/p Paracentesis Splenic/Bone Lesions Right Pleural Effusion LLL Nodule Hyponatremia h/o Uterine Ca s/p Hysterectomy Hyperlipidemia - f/u ascites fluid cytology - for bone scan - right pleural effusion small, likely related to intra-abdominal process - pt ambulating without dyspnea at this time, can await cytology - will need outpt PET scan to evaluate lung nodule but also likely related to above - DVT prophylaxis - pt asking about going home, no objections to continuing work up as outpt Thank you for this consult Alejandro Weaver MD
--- NOTE | 2019-06-07 13:45 | PN ---
Teaching Attending Note Name of Resident: Nelly Block ATTENDING PHYSICIAN STATEMENT I saw and evaluated the patient. I reviewed the resident's note and discussed the case with the resident. I agree with the resident's findings and plan as documented. SUBJECTIVE: No fever or chills. no PATEL , no ABd pain. no SOB OBJECTIVE: NAD, pale. HEENT:MMM CV: RRR, no MRG Lungs: CATB Ext: no edema or erythema on LE Abd: soft, NT, distended, + shifting dullness. ASSESSMENT AND PLAN: Pleasant unfortunate 78 y/o lady with h/o HTN and depression, and uterine cancer s/p hysterectomy who presented with abd pain x 3 weeks. She was found to have ascitis and spleen, and bone lesions 1- Possible metastatic cancer: unknown origin - path and lab called. pleural fluid to be analysed ( not done yet) - pleural fluid analysis, cytology, CEA 125, CA 19-9 to be followed by PCP - need PET scan as out pt. - need Bone scan as out pt 2- Ascitis: likely malignant . - s/p IR drainage of 3860 cc -echo does not explain . follow path as out pt 3- Hyponatremia: imrpoved . dc IVF 4- Fatigue, due to volume depletion, and possible cancer 5- Constipation :cont Bowel regimen as needed Dc home today to follow with onc, and PCP and pulm
--- NOTE | 2019-06-07 20:11 | DS ---
Physical Exam: SUBJECTIVE: Patient seen and examined. no acute complaints. OBJECTIVE: Vital Signs Period Temp Pulse Resp BP Sys/Lopez Pulse Ox Last 24 Hr 98.1 F-99.0 F 81-90 18-18 107-144/50-62 PHYSICAL EXAM NAD, pale. HEENT:MMM CV: RRR, no MRG Lungs: CATB Ext: no edema or erythema on LE Abd: soft, NT, distended, + shifting dullness. LABS Laboratory Results - last 24 hr 06/04/19 06/06/19 06/06/19 13:34 07:15 07:15 Sodium Potassium Chloride Carbon Dioxide Anion Gap BUN Creatinine Est GFR (CKD-EPI)AfAm Est GFR (CKD-EPI)NonAf Random Glucose Calcium Carcinoembryonic Ag 12.7 H CA 125 Antigen 154.1 H Peritoneal WBC 825 Peritoneal RBC 1299 Periton Neutrophils No Result Required. Peritoneal Diff Commnt 06/07/19 07:10 Sodium 134 L Potassium 4.3 Chloride 103 Carbon Dioxide 21 Anion Gap 10 BUN 20.8 H Creatinine 0.8 Est GFR (CKD-EPI)AfAm 81.84 Est GFR (CKD-EPI)NonAf 70.61 Random Glucose 92 Calcium 7.6 L Carcinoembryonic Ag CA 125 Antigen Peritoneal WBC Peritoneal RBC Periton Neutrophils Peritoneal Diff Commnt Abdominal CT 06/04/19 There is a [id number] right pleural effusion with compressive atelectasis in the right lung base. There are also mild atelectatic changes in the included left lower lobe, mainly anteriorly with a pleural-based nodule measuring 1.2 cm. The heart is within normal limits in size. In the abdomen and pelvis, a large amount of free fluid/ascites is present. The liver is small. The spleen is within normal limits in size with multiple low-attenuation foci measuring up to 1.4 cm. Partially distended stomach limiting evaluation of its wall without gross thickening. Status post cholecystectomy surgical metallic clips are present. The pancreas, both adrenal glands and both kidneys appear unremarkable except for an exophytic left renal lower pole simple cyst measuring 1.3 cm and another left renal upper pole simple cyst measuring 1.8 cm. Mesenteric stranding is present in the left upper abdomen adjacent to the splenic flexure of the colon. There is also mesenteric stranding in the mid abdomen. There is mild dilatation and thickening of the small bowel loops likely due to surrounding large amount of ascites. Normal amount of fecal residue in the colon which is nondistended significantly limiting evaluation of its wall. There are multiple diverticula in the sigmoid colon without evidence of acute diverticulitis. Partially distended urinary bladder without wall thickening. Nonvisualization of the uterus. Perirectal and pericecal fat are clear. A subcutaneous nodular density seen in the medial aspect of the left buttock measuring 2.4 x 1.8 cm. There is diffuse heterogeneous sclerotic densities in the included lower thoracic, lumbar and sacral spine as well as in the sacral wings. Multiple sclerotic foci in both iliac bones as well as in the right and left inferior pubic ramus. Findings are highly suspicious for bone metastasis Chest CT 06/04/19 Small to moderate right pleural effusion with associated basilar compressive atelectasis. Trace left pleural effusion. Nonspecific 1.2 cm and 0.5 cm pleural- based nodules are noted within the left lower lobe abutting the oblique fissure. There is a possible additional subtle 0.3 cm left lower lobe pulmonary nodule. Mild left lower lobe discoid atelectasis/scarring. Multifocal sclerotic osseous lesions are noted suggestive of metastatic neoplastic disease. Ascites is seen within the partially imaged upper abdomen. Left upper quadrant mesenteric soft tissue stranding is noted. Small splenic hypodense lesions are seen which are better visualized on recently performed abdomen/pelvis CT. Chest Xray 06/04/19 There is fluid with atelectasis at the right base and some atelectasis at the left base. There is a prominent mediastinum and clear left and right upper lobes. There is a sharp left angle. The bones and soft tissues are intact. There is contrast in the stomach and small bowel HOSPITAL COURSE: Date of Admission:06/04/19 78 y/o F w PMHx of HLD, Uterine Ca s/p hysterectomy (No chemoradiation) presents with abdominal pain, Loss of appetite and shortness of breath. Xray was ordered and results listed above. Ct Ab/pelvis was ordered (findings above) and Pt was found to have ascites with symptomatic paracentesis draining close to 4L in fluid. Fluid was sent for cytology and CEA and CA125 ordered for primary and secondary malignancy workup as finding on CT was concerning for lung pleura, spleen and bony lesions. Pt was seen by pulm which declined thoracocentesis as abdominal process is most likely source of effusion. Pt symptoms significantly improved and patient was recommended to follow up with oncology and pulm as outpatient as no further acute care was needed. Date of Discharge: 06/07/19 Minutes to complete discharge: 35 Discharge Summary Reason For Visit: ASCITES,ABD PAIN Current Active Problems Abdominal pain (Acute) Ascites (Acute) Constipation (Acute) Lung nodule (Acute) Pleural effusion (Acute) Condition: Stable - Instructions Diet, Activity, Other Instructions: You came in for abdominal pain. You were found to have a large volume of fluid. We removed almost 4L of fluid and sent the fluid for tests. We treated your acid reflux with medications. We imaged your abdomen and your lungs and found that you have suspicious masses in your lungs and bones and spleen. This may be related to the fluid also found in your in your lungs. Malignancy is being investigated Please follow up with your Energy Director Dr. Sheldon in 1 week. Please follow up with your Computer Systems Support Specialist/Oncologist Dr. Johansen in 1 week, to discuss the results of the lung and bone masses as well as to review the results of the fluid analysis and to proceed with a bone scan. also you need PET scan done Please follow up with your Primary Care Physician, Dr. Bustamante, within [address] Bustamante to follow up on the pending labs as well ( CEA 125, CA19-9), fluid analysis, and culture, also pathology ( fluid cytology). all these labs are pending and Please resume your home medications as they were prescribed. Please return to the ER if you notice that you develop worsening abdominal pain , difficulty breathing (especially at rest), constipation lasting longer than 3 days, notice blood in your stool or vomit or have any concerning symptoms. bowel regimen to avoid constipation good luck Referrals: Chuy Sheldon MD [Staff Physician] - 1 Week Shankar Johansen MD [Staff Physician] - 1 Week Dougie Bustamante MD [Primary Care Provider] - 1 Week Disposition: HOME - Home Medications Comprehensive Discharge Medication List: Ambulatory Orders Aspirin [Adult Aspirin Regimen] 81 mg PO DAILY 06/04/19 Simvastatin 20 mg PO DAILY 06/04/19 Docusate Sodium [Colace -] 100 mg PO DAILY PRN #60 capsule 06/07/19 Pantoprazole Sodium [Protonix] 40 mg PO DAILY 06/07/19 Sennosides [Senna] 8.6 mg PO DAILY PRN #30 tablet 06/07/19 Problem List - Problems (1) Abdominal pain Code(s): R10.9 - UNSPECIFIED ABDOMINAL PAIN (2) Ascites Code(s): R18.8 - OTHER ASCITES (3) Constipation Code(s): K59.00 - CONSTIPATION, UNSPECIFIED (4) Lung nodule Code(s): R91.1 - SOLITARY PULMONARY NODULE (5) Pleural effusion Code(s): J90 - PLEURAL EFFUSION, NOT ELSEWHERE CLASSIFIED This patient is new to me today: No Emergency Visit: Yes ED Registration Date: 06/04/19 Care time: The patient presented to the Emergency Department on the above date and was hospitalized for further evaluation of their emergent condition. Critical Care patient: No - Discharge Referral Referred to [facility] No ATTENDING PHYSICIAN STATEMENT I saw and evaluated the patient. I reviewed the resident's note and discussed the case with the resident. I agree with the resident's findings and plan as documented. SUBJECTIVE: OBJECTIVE: ASSESSMENT AND PLAN:
--- NOTE | 2019-06-07 21:49 | PN ---
Progress Note (short form) - Note Progress Note: Patient seen an dexamined Denies any specific complaints Last Vital Signs Temp Pulse Resp BP Pulse Ox 98.8 F 74 18 109/55 L 95 06/08/19 06:00 06/08/19 06:00 06/08/19 06:00 06/08/19 06:00 06/06/19 09:00 Cor: RSR, No murmurs, No gallops Lungs: Clear to P&A Abd: Soft, Normal bowel sounds, No organomegaly Ext:No significant edema Labs/Meds reviewed A/P 78 y/o patient presenting with h/o hysterectomy for ?? carcinoma in 1997 , no chemo/RT, comes in with abdominal distention CT scan revealed -- a right pleural effusion. There are multiple splenic lesions. There is a large volume of ascites. There are bone lesions suspicious for metastases s/p paracentesis -- await cytology CA 125/ CEA elevated check bone scan colonoscopy several yrs. ago> 10yrs.---scheduled to see Dr. Bhat later this week mammogram-- benign, U/S --hypoechoic masses, stable 11/03 Discussed with patient and her daughters. If cytology negative from ascitic fluid will need bone biopsy. Given that her mother had breast cancer at a young age-- contact nos. given to genetics counsellor Contact nos. given to follow up in our office closely
[2019-06-08] MEDS: ENOXAPARIN NA (PORCINE) 40 MG/0.4 ML DISP.SYRIN SQ SCH (09:48)
[2019-06-08 09:51] VITALS: BP 128/65; PULSE 87; TEMP 98
--- NOTE | 2019-06-08 11:55 | PN ---
Progress Note (short form) - Note Progress Note: PULMONARY Awaiting bone scan. Denies shortness of breath, cough or wheezing. Vital Signs Period Temp Pulse Resp BP Sys/Lopez Pulse Ox Last 24 Hr 98.0 F-98.9 F 71-90 18-18 109-144/50-65 Gen: NAD at rest Heart: RRR Lung: decreased breath sounds at the bases Abd: soft, nontender Ext: no edema CBC, BMP 06/06/19 07:15 06/07/19 07:10 Active Medications Docusate Sodium (Colace -) 100 mg PO DAILY PRN PRN Reason: CONSTIPATION Last Admin: 06/06/19 13:40 Dose: 100 mg Enoxaparin Sodium (Lovenox -) 40 mg SQ DAILY LUISA Last Admin: 06/08/19 09:48 Dose: 40 mg Ondansetron HCl (Zofran Injection) 4 mg IVPUSH Q4H PRN PRN Reason: NAUSEA AND/OR VOMITING Last Admin: 06/05/19 00:33 Dose: 4 mg Senna (Senna -) 2 tab PO HS PRN PRN Reason: CONSTIPATION A/P Suspected Metastatic Disease Ascites s/p Paracentesis Splenic/Bone Lesions Right Pleural Effusion LLL Nodule Hyponatremia h/o Uterine Ca s/p Hysterectomy Hyperlipidemia - f/u ascites fluid cytology - for bone scan - right pleural effusion small, likely related to intra-abdominal process - pt ambulating without dyspnea at this time, can await cytology - will need outpt PET scan to evaluate lung nodule but also likely related to above - DVT prophylaxis - no objections to continuing work up as outpt Problem List - Problems (1) Ascites Code(s): R18.8 - OTHER ASCITES (2) Pleural effusion Code(s): J90 - PLEURAL EFFUSION, NOT ELSEWHERE CLASSIFIED (3) Lung nodule Code(s): R91.1 - SOLITARY PULMONARY NODULE
[2019-06-08] MEDS: DOCUSATE SODIUM 100 MG CAPSULE (FP) PO PRN (14:14)
[2019-06-08 17:11] LABS: BODY FLUID ALBUMIN 2.7 g/dL (.)
--- NOTE | 2019-06-08 17:22 | PN ---
Teaching Attending Note Name of Resident: Irina Crenshaw ATTENDING PHYSICIAN STATEMENT I saw and evaluated the patient. I reviewed the resident's note and discussed the case with the resident. I agree with the resident's findings and plan as documented. SUBJECTIVE: No fever or chills. No PATEL . no abd pain OBJECTIVE: NAD, pale. HEENT:MMM CV: RRR, no MRG Lungs: CATB Ext: no edema or erythema on LE Abd: soft, NT, slightly more distended today , Nl BS . ASSESSMENT AND PLAN: Pleasant unfortunate 78 y/o lady with h/o HTN and depression, and uterine cancer s/p hysterectomy who presented with abd pain x 3 weeks. She was found to have ascitis and spleen, and bone lesions 1- Possible metastatic cancer: unknown origin - path is still pending . patient did not want to wait for results - pleural fluid is exudative. cytology, CA 19-9 to be followed by PCP . CEA elevated - need PET scan as out pt. - Bone scan done patient did not want to stay 2- Ascitis: likely malignant . - s/p IR drainage of 3860 cc -echo does not explain . follow path as out pt 3- Hyponatremia: due to hypovolemia. improved 4- Fatigue, due to volume depletion, and possible cancer 5- Constipation :cont Bowel regimen as needed home with out pt follow up . Bone Bx was to be planned as inpatient per Dr. Miranda, pending cytology, but patient elected to follow up as out pt
--- NOTE | 2019-06-14 09:28 | PATH ---
Cytology Non-Gynecological Report Patient Name: VERN CHURCH [facility]. Rec. #: [id number] /Age/Gender: 1940 (Age: 78) / F Account: [id number] Location: [address] [place] [address] Taken: 06/04/2019 Received: 06/07/2019 Reported: 06/14/2019 Physicians: Erika Disla MD Specimen(s) Received A: ABDOMINAL FLUID B: ABDOMINAL FLUID Clinical History Ascites, uterine cancer, lung nodules, pleural effusion Final Diagnosis A-B: ABDOMINAL FLUID, PARACENTESIS: SATISFACTORY FOR EVALUATION. POSITIVE FOR MALIGNANT CELLS. ADENOCARCINOMA. ATYPICAL EPITHELIAL CELLS WITH NUCLEAR ENLARGEMENT, INCREASED NUCLEUS TO CYTOPLASMIC RATIO, AND COARSE CHROMATIN, DISPERSED SINGLE CELLS AND FEW SMALL CLUSTERS. SEE COMMENT. Comment: Immunohistochemical stains performed and interpreted at [facility] show the malignant cells are positive for CK7 and ALEXEY; while negative for CK20 and ER. Additional Immunohistochemical stains performed at [place], [place] ([id number]) and interpreted at [facility] show the malignant cells are positive for TTF-1, Napsin-A, p53, vimentin and ACOSTA; while negative for WT-1, MI, [place]-8, p16, calretinin, and MOC-31. Overall cytomorphology and immunophenotype shows an adenocarcinoma, consistent with lung origin. Suggest clinical and radiologic correlation. History of endometrial carcinoma; lung nodules and pleural effusion by imaging are noted. Findings discussed with Drs. Cheney and Alexis. Positive and negative controls (internal if applicable) show appropriate results. Electronically Signed Avril Pool M.D. Gross Description A. Approximately 4000 cc of yellow fluid received fresh. One cytofunnel prepared and Pap stained. Additional 2 cellblocks prepared. B. Approximately 100 cc of yellow fluid received fixed in 50% alcohol. One cytofunnel prepared and Pap stained. One cellblock prepared.
== END 2019-06-08 14:21 | disposition home or self-care (01) | DRG 844 ==
LOC: JER 06:16 → JERBED 13:02 → J5S 18:48
PROVIDERS: ADMIT Internal Medicine; ATTEND Internal Medicine
PROC: 0W9G3ZX Drainage of Peritoneal Cavity, Percutaneous Approach, Diagnostic (ICD-10-PCS; principal; 2019-06-04)
DX: C79.9 Secondary malignant neoplasm of unspecified site (principal); R18.8 Other ascites; J90 Pleural effusion, not elsewhere classified; E87.1 Hypo-osmolality and hyponatremia; J98.11 Atelectasis; E87.2 Acidosis; K59.00 Constipation, unspecified; R91.1 Solitary pulmonary nodule; E78.5 Hyperlipidemia, unspecified; E86.9 Volume depletion, unspecified; R53.83 Other fatigue; I10 Essential (primary) hypertension; F32.9 Major depressive disorder, single episode, unspecified; Z85.42 Personal history of malignant neoplasm of other parts of uterus
CPT/HCPCS: 36415; 71046-TC-FY; 71250-TC; 74177-TC; 76942-TC; 78306-TC; 80048; 80053; 80076; 81003; 82042; 82150; 82378; 82465; 82565; 82945; 82977; 83605; 83615; 83690; 83735; 83930; 83935; 83986; 84100; 84157; 84300; 84478; 85025; 85610; 86304; 86850; 86900; 86901; 87070; 87075; 87077; 87086; 87102; 87116; 87186; 87205; 87206; 87210; 88108; 88305-TC; 88341-TC; 89051; 93005; 93010; 93306-TC; 97116-GP; 97161-GP; 99282-25; A9503; J7030; Q9967